=== PATIENT | female | born 1965 | race African-American/Black ===

== ENCOUNTER 2018-02-04 10:01 | Outpatient (CLI) | payer OTHER ==
--- NOTE | 2018-02-04 10:57 | XRay Report ---
AP AND LATERAL CERVICAL SPINE: History: Pain in neck. The vertebral bodies are well mineralized and normal in alignment and vertebral height with well preserved interspace distances. The visualized portions of the posterior elements are normal. IMPRESSION: Normal study.
== END 2018-02-04 10:02 | disposition home or self-care (01) ==
LOC: XRAY 10:01
PROVIDERS: ATTEND Family Medicine
DX: M54.2 Cervicalgia (principal)
CPT/HCPCS: 72050